=== PATIENT | male | born 1965 ===

== ENCOUNTER 2020-07-24 19:53 | Emergency (ER) | payer MEDICAID ==
[~2020-07-24] VITALS: Ht 172.7 cm; Wt 63.5 kg
--- NOTE | 2020-07-24 19:55 | NUR ---
ED Nurse Note: brought in by jersey ra 63 stating he has been off psych meds and requesting to be evaluated. denies si or harm to others. pt brought list of psych meds he is on. jersey reports patient took various med for possible od. pd at bedside for hold placement.
[2020-07-24 20:15] VITALS: BP 138/87
--- NOTE | 2020-07-24 20:20 | NUR ---
ED Nurse Note: all belongings placed in locker #1. See inventory list for list of belonging. pt ramey placed in security bag with supervisor tank house and security witnessing count. Bag # [id number]. Ramey amount total $854
--- NOTE | 2020-07-24 21:34 | Emergency Room Report ---
History of Present Illness General Chief Complaint: Behavioral Complaint Source: Patient (Gabbie Gan) Present Illness HPI 54-year-old male with history of schizophrenia currently taking Seroquel and BuSpar brought in by paramedics after an attempt to overdose on fentanyl. No Narcan was given. Patient reports that he is suicidal and he plans to kill himself again with fentanyl overdose. Patient is requesting psychiatric evaluation. Patient reports that he is taking Seroquel 200 however wants to be taking only half the dose because he does not want to feel sleepy. Patient request for his Seroquel 100 mg were given to him at 11 so he can sleep. Patient was placed on a 5150 hold by [employer]. Denies any chest pain or shortness of breath. Denies any headache or dizziness. Reports that he does not want any IV insertions. Patient is compliant and answers to questions. Denies drug use and tobacco smoke. Denies alcohol intake. Denies any IV drug use. (Gabbie Gan) Allergies: Coded Allergies: No Known Allergies (Unverified , 07/24/20) COVID-19 Screening COVID-19 risk:Contact w/high r: No Has patient experienced etienne: No COVID-19 Testing performed RN IMAGING: No (Gabbie Gan) Patient History Past Medical History: see triage record Past Surgical History: unable to obtain Family History: unable to obtain Social History: drug use - Fentanyl Reviewed Nursing Documentation: PMH: Agreed; PSxH: Agreed (Gabbie Gan) Nursing Documentation-PMH History Of Psychiatric Problem: Yes (Gabbie Gan) Review of Systems All Other Systems: negative except mentioned in HPI (Gabbie Gan) Physical Exam Vital Signs Date Time Temp Pulse Resp B/P (MAP) Pulse Ox O2 Delivery O2 Flow Rate FiO2 07/24/20 19:53 97.9 105 16 142/92 (109) 99 Room Air Sp02 EP Interpretation: reviewed, normal General Appearance: alert/responsive, no apparent distress, GCS 15, non-toxic Head: atraumatic Eyes: PERRL, lids + conjunctiva normal ENT: hearing intact, no angioedema Neck: supple/symm/no masses, no meningismus Respiratory: effort normal, no wheezing, chest symmetrical Cardiovascular: regular rate, rhythm, no edema Gastrointestinal: non-tender, no mass, non-distended, no rebound/guarding, normal bowel sounds Musculoskeletal: gait & station normal, normal ROM, strength & tone normal, non-tender Neurologic: oriented x3, sensory intact, normal speech Suicide Risk Assessment: Suicidal Ideation: Yes Had intent to initiate attempt: Yes Pt's plan for suicide attempt: Yes Has means to complete attempt: Yes Skin: normal inspection Lymphatic: normal inspection (Gabbie Gan) Medical Decision Making PA Attestation All my diagnosis and treatment plans were reviewed ad discussed with my supervising physician Dr. Abbott (Gabbie Gan) Diagnostic Impression: Primary Impression: Suicidal ideation Additional Impressions: Right inguinal hernia Substance abuse ER Course 54-year-old male with history of schizophrenia currently taking Seroquel and BuSpar brought in by paramedics after an attempt to overdose on fentanyl. No Narcan was given. Patient reports that he is suicidal and he plans to kill himself again with fentanyl overdose. Patient is requesting psychiatric evaluation. Patient reports that he is taking Seroquel 200 however wants to be taking only half the dose because he does not want to feel sleepy. Patient request for his Seroquel 100 mg were given to him at 11 so he can sleep. Patient was placed on a 5150 hold by [employer]. Denies any chest pain or shortness of breath. Denies any headache or dizziness. Reports that he does not want any IV insertions. Patient is compliant and answers to questions. Denies drug use and tobacco smoke. Denies alcohol intake. Denies any IV drug use. Ddx considered but are not limited to: generalized anxiety disorder, panic attack, depression with psychotic feature, bipolar disorder, drug overdose Vital signs: are WNL, pt. is afebrile H&PE are most consistent with: Suicidal ideation ORDERS: Psychiatric order set ED INTERVENTIONS: Seroeliell I signed out the patient to Dr. Abbott at 9:40PM (Gabbie Gan) ER Course Please see above note. Patient cleared for psychiatric evaluation and treatment medically. Awaiting transfer. Usual medications ordered. Patient complaining about right inguinal hernia pain. Hernia easily reducing. Motrin ordered. Patient signed out to Dr. Su. Laboratory Tests Test 07/24/20 21:20 07/25/20 00:00 White Blood Count 9.7 K/UL (4.8-10.8) Red Blood Count 4.66 M/UL (4.70-6.10) L Hemoglobin 13.8 G/DL (14.2-18.0) L Hematocrit 41.8 % (42.0-52.0) L Mean Corpuscular Volume 90 FL (80-99) Mean Corpuscular Hemoglobin 29.6 PG (27.0-31.0) Mean Corpuscular Hemoglobin Concent 33.0 G/DL (32.0-36.0) Red Cell Distribution Width 15.7 % (11.6-14.8) H Platelet Count 393 K/UL (150-450) Mean Platelet Volume 5.2 FL (6.5-10.1) L Neutrophils (%) (Auto) 67.7 % (45.0-75.0) Lymphocytes (%) (Auto) 20.9 % (20.0-45.0) Monocytes (%) (Auto) 9.5 % (1.0-10.0) Eosinophils (%) (Auto) 0.7 % (0.0-3.0) Basophils (%) (Auto) 1.1 % (0.0-2.0) Sodium Level 139 MMOL/L (136-145) Potassium Level 3.5 MMOL/L (3.5-5.1) Chloride Level 102 MMOL/L (98-107) Carbon Dioxide Level 29 MMOL/L (21-32) Anion Gap 8 mmol/L (5-15) Blood Urea Nitrogen 16 mg/dL (7-18) Creatinine 1.1 MG/DL (0.55-1.30) Estimated Glomerular Filtration Rate > 60 mL/min (>60) Glucose Level 90 MG/DL (74-106) Calcium Level 9.0 MG/DL (8.5-10.1) Total Bilirubin 0.2 MG/DL (0.2-1.0) Aspartate Amino Transferase (AST) 36 U/L (15-37) Alanine Aminotransferase (ALT) 80 U/L (12-78) H Alkaline Phosphatase 91 U/L (46-116) Total Protein 8.6 G/DL (6.4-8.2) H Albumin 4.2 G/DL (3.4-5.0) Globulin 4.4 g/dL Albumin/Globulin Ratio 1.0 (1.0-2.7) Salicylates Level 1.1 ug/mL (2.8-20) L Urine Opiates Screen Positive (NEGATIVE) H Acetaminophen Level < 2 MCG/ML (10-30) L Urine Barbiturates Screen Negative (NEGATIVE) Phencyclidine (PCP) Screen Negative (NEGATIVE) Urine Amphetamines Screen Positive (NEGATIVE) H Urine Benzodiazepines Screen Negative (NEGATIVE) Urine Cocaine Screen Negative (NEGATIVE) Urine Marijuana (THC) Screen Positive (NEGATIVE) H Serum Alcohol < 3 mg/dL Urine Color Yellow Urine Appearance Slightly cloudy Urine pH 5 (4.5-8.0) Urine Specific Elgin 1.025 (1.005-1.035) Urine Protein 1+ (NEGATIVE) H Urine Glucose (UA) Negative (NEGATIVE) Urine Ketones 1+ (NEGATIVE) H Urine Blood Negative (NEGATIVE) Urine Nitrite Negative (NEGATIVE) Urine Bilirubin Negative (NEGATIVE) Urine Urobilinogen 1 MG/DL (0.0-1.0) H Urine Leukocyte Esterase Negative (NEGATIVE) Urine RBC 0-2 /HPF (0 - 0) H Urine WBC 0-2 /HPF (0 - 0) Urine Squamous Epithelial Cells Occasional /LPF Urine Calcium Oxalate Crystals Many /LPF (NONE) Urine Bacteria Occasional /HPF (NONE) Urine Hyaline Casts 0-2 /LPF (NONE) H Urine Fine Granular Casts 0-2 /LPF (NONE) H Microbiology Date/Time Source Procedure Growth Status 07/25/20 02:55 Nasopharynx SARS-CoV-2 RdRp Gene Assay - Final Complete (Oneal Lai MD) ER Course Care signed out to me by Dr Lai at 1400 HPI: 54-year-old schizophrenic male PMHx schizophrenia (on Seroquel and BuSpar outpatient) and R inguinal hernia BIB PD on 5150 hold for SI via plan to have fentanyl OD. Medically cleared. UDS(+) for meth, marijuana. The patient was observed for a period of time in the ED with serial neurologic exams. After serial neurologic exams in the emergency department, the patient remains clinically sober. They have no focal neurologic deficits and were able to ambulate with a steady gait without assistance. The patients presentation seems to be consistent with suicidal ideation, without any complications such as suicide attempt or overdose. Abdominal examination shows right easily reducible inguinal hernia. Doubt incarceration or strangulation. Patient was able to tolerate p.o. food and fluid during the course of ED evaluation. The patient appears to be stable for transfer to a psychiatric facility for further psychiatric evaluation and care, without any obvious medical etiology for their symptoms. (Katlyn uS D.O.) Last Vital Signs Date Time Temp Pulse Resp B/P (MAP) Pulse Ox O2 Delivery O2 Flow Rate FiO2 07/24/20 19:53 97.9 105 16 142/92 (109) 99 Room Air (Gabbie Gan) Last Vital Signs Date Time Temp Pulse Resp B/P (MAP) Pulse Ox O2 Delivery O2 Flow Rate FiO2 07/25/20 19:40 78 16 104/68 99 Room Air 98 07/25/20 15:03 97.0 Status: improved (Oneal Lai MD) Disposition: PSYCH HOSP/UNIT Admit Decision Time: 15:26 (Katlyn Su D.O.) Condition: Stable Referrals: NON PHYSICIAN (PCP) Gabbie Gan Jul 24, 2020 21:34 Oneal Lai MD Jul 25, 2020 12:05 Katlyn Su D.O. Jul 25, 2020 15:26
[2020-07-24 22:02] LABS: BASOPHILS % (AUTO) 1.1 % (0.0-2.0); EOSINOPHILS % (AUTO) 0.7 % (0.0-3.0); HEMATOCRIT 41.8 % (42.0-52.0); HEMOGLOBIN 13.8 G/DL (14.2-18.0); LYMPHOCYTES % (AUTO) 20.9 % (20.0-45.0); MEAN CORPUSCULAR VOLUME 90 FL (80-99); MONOCYTES % (AUTO) 9.5 % (1.0-10.0); NEUTROPHILS % (AUTO) 67.7 % (45.0-75.0); PLATELET COUNT 393 K/UL (150-450); RED BLOOD COUNT 4.66 M/UL (4.70-6.10); RED CELL DISTRIBUTION WIDTH 15.7 % (11.6-14.8); WHITE BLOOD COUNT 9.7 K/UL (4.8-10.8)
[2020-07-24 22:08] LABS: ANION GAP 8 mmol/L (5-15); BLOOD UREA NITROGEN 16 mg/dL (7-18); CARBON DIOXIDE 29 MMOL/L (21-32); CHLORIDE 102 MMOL/L (98-107); CREATININE 1.1 MG/DL (0.55-1.30); POTASSIUM 3.5 MMOL/L (3.5-5.1); SODIUM 139 MMOL/L (136-145)
[2020-07-24 22:13] LABS: ALANINE AMINOTRANSFERASE 80 U/L (12-78); ALBUMIN 4.2 G/DL (3.4-5.0); ALKALINE PHOSPHATASE 91 U/L (46-116); ASPARTATE AMINO TRANSFERASE 36 U/L (15-37); BILIRUBIN,TOTAL 0.2 MG/DL (0.2-1.0)
[2020-07-24 23:00] VITALS: BP 133/67
--- NOTE | 2020-07-24 23:00 | NUR ---
ED Nurse Note: pt calm and sleeping in bed. vss, nad
[2020-07-25] VITALS (8 sets, daily range): BP systolic 100–133; BP diastolic 57–78
--- NOTE | 2020-07-25 03:00 | NUR ---
ED Nurse Note: rapid covid collected and sent to lab.
--- NOTE | 2020-07-25 05:57 | NUR ---
ED Nurse Note: pt calm and sleeping. vss, nad
--- NOTE | 2020-07-25 07:20 | NUR ---
ED Nurse Note: Assumed care of the patient. Patient awake, alert, oriented x 3. Regular, unlabored breathing noted. Patient has hospital socks on. Provided warm blanket and sandwiches. Comfort measured offered.Patient ambulated to the restroom with steady gait. Patient states he is suicidal. Room safety check performed. Bed in lowest position. Increased observation.
--- NOTE | 2020-07-25 07:43 | NUR ---
Pts belongings placed in psych locker #3
[2020-07-25] MEDS ORDERED: VENLAFAXINE HCL75 MG ORAL (08:32)
[2020-07-25] MEDS ORDERED: BANOPHEN25 MG PO (08:32)
[2020-07-25] MEDS ORDERED: BENZTROPINE MESY1 MG ORAL (08:32)
[2020-07-25] MEDS ORDERED: SYNTHROID25 MCG ORAL (08:32)
[2020-07-25] MEDS ORDERED: BUSPIRONE HCL5 M2 ORAL (08:32)
[2020-07-25] MEDS ORDERED: VENLAFAXINE HC150 MG ORAL (08:32)
[2020-07-25] MEDS ORDERED: QUETIAPINE FUM400 MG ORAL (08:32)
[2020-07-25 08:53] LABS: APPEARANCE,URINE SLIGHTLY CLOUDY; BILIRUBIN, URINE NEGATIVE (NEGATIVE); GLUCOSE, URINE (UA) NEGATIVE (NEGATIVE); KETONES,URINE 1+ (NEGATIVE); LEUKOCYTE ESTERASE ,URINE NEGATIVE (NEGATIVE); NITRITE,URINE NEGATIVE (NEGATIVE); PH,URINE 5 (4.5-8.0); PROTEIN,URINE 1+ (NEGATIVE); UROBILINOGEN,URINE 1 MG/DL (0.0-1.0)
--- NOTE | 2020-07-25 09:05 | NUR ---
ED Nurse Note: Patient ate 100% breakfast and went back to sleep.
[2020-07-25 09:06] LABS: COLOR,URINE YELLOW
--- NOTE | 2020-07-25 09:09 | Diagnostic Imaging Report ---
EXAM: XR Chest, 1 View CLINICAL HISTORY: SCREEN TECHNIQUE: Frontal view of the chest. COMPARISON: No relevant prior studies available. FINDINGS: Lungs: Unremarkable. No consolidation. No evidence of active tuberculosis. Pleural space: Unremarkable. No pneumothorax. Heart: Unremarkable. No cardiomegaly. Mediastinum: Unremarkable. Bones/joints: Unremarkable. IMPRESSION: Normal chest x-ray.
--- NOTE | 2020-07-25 09:24 | NUR ---
ED Nurse Note: This RN removed patient's osorio $855 from bag# [id number] and filled patient's valuables deposit and placed patient's money total amount of $855 in valuable bag, witnessed by ELOISE Dahl. Completed belonging list.
[2020-07-25] MEDS ORDERED: BusPIRone 5mg Tab ORAL STA (10:31)
--- NOTE | 2020-07-25 10:31 | NUR ---
ED Nurse Note: Patient requesting his morning medication. Given the list of his med to Dr. Lai. Comfort measures offered. Patient resting in bed with eyes closed. Bed in lowest position. Suicidal precaution maintained.
[2020-07-25] MEDS ORDERED: Venlafaxine HCl 37.5mg Tab ORAL ONE (10:45)
[2020-07-25] MEDS ORDERED: Venlafaxine XR 150mg cap ORAL ONE (10:45)
--- NOTE | 2020-07-25 11:10 | NUR ---
ED Nurse Note: Report given to ELOISE Russo.
--- NOTE | 2020-07-25 11:14 | NUR ---
ED Nurse Note: pt ambulated to restroom with steady gait, requesting lunch tray. lunch has been ordered for pt. pt reports he still has SI thoughts but denies HI at this time. all safety precautions are in place, sitter at bedside. will continue to monitor.
--- NOTE | 2020-07-25 11:20 | NUR ---
Placed patient's belongings (2 bags) in psych cabinent #1.
--- NOTE | 2020-07-25 12:00 | NUR ---
ED Nurse Note: pt able to tolerate 95% of lunch meal without incident. currently c/o hernia and requested ERMD to evaluate it. Dr. Lai at pt bedside
--- NOTE | 2020-07-25 13:58 | NUR ---
ED Nurse Note: pt resting in bed, no acute distress is noted at this time. pt reports improvement of hernia pain. all safety precautions are in place with sitter at bedside
--- NOTE | 2020-07-25 14:00 | NUR ---
called [facility] again . per intake they will call m,e back if any bed come avilable patient is on waiting list
--- NOTE | 2020-07-25 15:00 | NUR ---
lyle called back states they are reviewing the chart will call back
--- NOTE | 2020-07-25 15:02 | NUR ---
ED Nurse Note: dinner tray ordered for pt. pt was provided with juice and sandwich upon request.
[2020-07-25] MEDS ORDERED: BusPIRone 5mg Tab ORAL ONE (16:30)
--- NOTE | 2020-07-25 16:46 | NUR ---
[facility] will call me back as soon as he can
--- NOTE | 2020-07-25 16:50 | NUR ---
henry from [facility] called back states no bed now call back at 9pm
--- NOTE | 2020-07-25 17:07 | NUR ---
ED Nurse Note: pt tolerated 95% of dinner tray without incident. requesting PM dose of JESSI shah notified. all safety precautions are in place, sitter remains at bedside
--- NOTE | 2020-07-25 17:52 | NUR ---
ED Nurse Note: Patient sleeping in bed. Increased observation. Suicidal precaution maintained.
--- NOTE | 2020-07-25 18:20 | NUR ---
ED Nurse Note: Report given to ELOISE Russo.
--- NOTE | 2020-07-25 19:08 | NUR ---
ED Nurse Note: Placed patient's medications (2 bags- #[id number], #[id number]) in patient's own medication box in medication room and logged on the folder. Addendum: 07/25/20 at 1913 by ANDREINA POLINA Guerrier, RN placed patient's money in safe.
--- NOTE | 2020-07-25 20:41 | NUR ---
ED Nurse Note: pt resting comfortable in bed, requesting and was provided sandwich and juices for nourishment. pt tolerated well. no acute distress is noted at this time, all safety precautions are in place, sitter remains at pt bedside.
--- NOTE | 2020-07-25 23:05 | NUR ---
ED Nurse Note: pt resting comfortably in bed, no acute distress is noted at this time, all safety precautions are in place, sitter remains at pt bedside.
[2020-07-26] VITALS (7 sets, daily range): BP systolic 109–130; BP diastolic 61–85
--- NOTE | 2020-07-26 01:24 | NUR ---
Resting, no signs of distress noted.
--- NOTE | 2020-07-26 01:29 | NUR ---
ED Nurse Note: received patient, patient in bed in no distress at this time. patient was given water. will continue to monitor
--- NOTE | 2020-07-26 03:45 | NUR ---
ED Nurse Note: patient currently in bed at this time. was given a juice. will continue to monitor
--- NOTE | 2020-07-26 05:23 | NUR ---
ED Nurse Note: patient asking for breakfast. patient informed that he will be given breakfast. regular diet ordered.
--- NOTE | 2020-07-26 06:55 | NUR ---
ED Nurse Note: patient provided with breakfast.
--- NOTE | 2020-07-26 07:03 | NUR ---
HAND-OFF: Report given to ELOISE Andrade.
--- NOTE | 2020-07-26 07:35 | NUR ---
ED Nurse Note: Patient resting on bed with no distress. Breakfast consumed 100%. SitAnders at the bed side.
--- NOTE | 2020-07-26 09:15 | NUR ---
ED Nurse Note: Patient ambulated with steady gait and went to the rest room. Sitter accompanied patient.
--- NOTE | 2020-07-26 09:18 | NUR ---
ED Nurse Note: Patient came back to his bed with steady gait. SitAnders at the bed side.
--- NOTE | 2020-07-26 09:22 | NUR ---
ED Nurse Note: Patient is asking for his morning medication of Buspar 20mg and Effexor XR 150mg. Dr Abbott was notified.
[2020-07-26] MEDS ORDERED: Venlafaxine XR 150mg cap ORAL ONE (09:30)
[2020-07-26] MEDS ORDERED: BusPIRone 5mg Tab ORAL ONE (09:30)
--- NOTE | 2020-07-26 11:59 | NUR ---
ED Nurse Note: Lunch provided to patient and 100% consumed. Sitter Jospeh at the bed side. Comfort measures provided.
[2020-07-26] MEDS ORDERED: BusPIRone 5mg Tab ORAL SCH (13:30)
--- NOTE | 2020-07-26 15:12 | NUR ---
HAND-OFF: Report given to Letty NAVAS.
--- NOTE | 2020-07-26 15:15 | NUR ---
ED Nurse Note: Patient is resting in bed at this time. Report received from ELOISE Andrade. Sitter is bedside monitoring patient. Patient is being cooperative, no signs of distress. Will continue to monitor.
--- NOTE | 2020-07-26 15:45 | NUR ---
ED Nurse Note: Patient offered toileting. Patient ambulated to restroom with sitter observing patient. Patient ambulated with steady gait.
--- NOTE | 2020-07-26 17:15 | NUR ---
ED Nurse Note: Patient is sleeping in bed at this time. Sitter is bedside. Will continue to monitor. Safety measures in place.
--- NOTE | 2020-07-26 20:30 | NUR ---
ED Nurse Note: Sitter remains bedside monitoring patient. Pt provided with juice. NAD at this time. Patient continuously asking for ativan; aware.
--- NOTE | 2020-07-27 | NUR ---
ED Nurse Note: Sitter remains bedside monitoring patient. All safety measures in place. Patient is sleeping at this time. NAD.
[2020-07-27 03:30] VITALS: BP 138/87
--- NOTE | 2020-07-27 03:30 | NUR ---
ED Nurse Note: Patient ambulated to restroom without complication at this time. Sitter remains observing patient with safety measures in place. Patient vital signs assessed and are stable; he was cooperative. NAD noted. Will continue to monitor. Breathing is normal and unlabored.
--- NOTE | 2020-07-27 04:00 | NUR ---
ED Nurse Note: Patient is calm and cooperative. Sitter reamains bedside with suicidal precuations in place. He notes plan to harm himself by overdose on fentanyl. No acute distress noted. Patient is in bed resting.
--- NOTE | 2020-07-27 05:06 | NUR ---
HAND-OFF: Report given to Winston May RN.
--- NOTE | 2020-07-27 05:10 | NUR ---
ED Nurse Note: received report from Letty NAVAS. Pt calm and sleeping in bed. Sitter at bedside
--- NOTE | 2020-07-27 07:00 | NUR ---
ED Nurse Note: Report received from ELOISE Carroll. Pt lying comfortably in bed with no signs of distress. A+Ox4, calm and cooperative. Pt does not have IV access. in psych gown. Belongings in psych locker. Sitter @ bedside. Breakfast tray ordered for patient. Respirations even and unlabored on room air. Vitals stable as documented.
--- NOTE | 2020-07-27 07:15 | NUR ---
ED Nurse Note: pt denies SI/HI at this time.
[2020-07-27] MEDS ORDERED: BusPIRone 5mg Tab ORAL ONE (10:00)
[2020-07-27] MEDS ORDERED: Venlafaxine XR 150mg cap ORAL ONE (10:00)
--- NOTE | 2020-07-27 10:00 | NUR ---
ED Nurse Note: Dr. Heredia @ bedside to evaluate pt
[2020-07-27 10:40] VITALS: BP 132/81
--- NOTE | 2020-07-27 10:40 | NUR ---
Homeless Discharge: Patient is being discharged from medical care. Awake, alert and oriented x4. Medications, osorio, and clothing retrieved from locker and safe and given to patient. After care instructions, including referral to community resources were given. Patient verbalized understanding of After care instructions; at this time patient does not request medications, equipment or placement. Patient signed patient consent in the medical record for patient destination upon discharge. Pt declined to disclose discharge location. All medical devices such as ID band were removed. Pt did not have IV access. Clothing adequate. Food provided. Patient ambulated out with all personal belongings with steady gait.
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
== END 2020-07-27 10:40 | disposition home or self-care (01) ==
LOC: EDBD 19:53 → EMR 20:35
DX: R45.851 Suicidal ideations (principal); K40.90 Unilateral inguinal hernia, without obstruction or gangrene, not specified as recurrent; F19.10 Other psychoactive substance abuse, uncomplicated; F20.9 Schizophrenia, unspecified
CPT/HCPCS: 36415; 71045; 80053; 80307; 81001; 85025; G0480; G0481; U0002; Z7502; 99285